=== PATIENT | female | born 1975 | race Two or more races ===

== ENCOUNTER 2019-10-24 10:09 | Emergency (ER) | payer BC ==
--- NOTE | 2019-10-24 10:42 | ED ---
Influenza-Like Illness - HPI Summary HPI Summary: 44-year-old female who presents emergency Department with flulike symptoms times x 5 days. Patient notes fever, cough, headache, sore throat. Patient notes cough has become more productive. Notes mild diarrhea without abdominal pain or vomiting. No past medical history. Patient's notes her daughter was positive for the flu last week. Symptoms are mild in severity. Fever is improved with Tylenol. - History of Current Complaint Chief Complaint: EDUpperRespComplaint Time Seen by Provider: 10/24/19 10:20 Hx Obtained From: Patient - Allergy/Home Medications Allergies/Adverse Reactions: Allergies Allergy/AdvReac Type Severity Reaction Status Date / Time acetaminophen [From Vicodin] Allergy Vomiting Verified 10/24/19 10:17 aspirin Allergy Swelling Verified 10/24/19 10:17 Of Face,Lips,& Throat hydrocodone [From Vicodin] Allergy Vomiting Verified 10/24/19 10:17 Home Medications: Home Medications Acetaminophen TAB* [Tylenol TAB*] 325 mg PO Q4H PRN 10/24/19 [History Confirmed 10/24/19] Ascorbic Acid TAB* [Vitamin C TAB*] 500 mg PO DAILY 10/24/19 [History Confirmed 10/24/19] Dextromethorphan Polistirex [Delsym] 30 mg PO DAILY PRN 10/24/19 [History Confirmed 10/24/19] PMH/Surg Hx/FS Hx/Imm Hx Previously Healthy: Yes Infectious Disease History: No Infectious Disease History: Denies: Traveled Outside the [place] in Last 30 Days - Family History Known Family History: Positive: Non-Contributory - Social History Occupation: Unemployed Lives: With Family Alcohol Use: None Substance Use Type: Reports: None Smoking Status (MU): Never Smoked Tobacco Review of Systems Positive: Fever, Chills Eyes: Negative Positive: Sore Throat, Nasal Discharge Cardiovascular: Negative Positive: Cough. Negative: Shortness Of Breath Positive: Diarrhea. Negative: Abdominal Pain, Vomiting Genitourinary: Negative Negative: dysuria Positive: Myalgia Skin: Negative Negative: Rash Positive: Headache. Negative: Weakness, Paresthesia, Numbness, Syncope All Other Systems Reviewed And Are Negative: Yes Physical Exam Triage Information Reviewed: Yes Vital Signs On Initial Exam: Initial Vitals Temp Pulse Resp BP Pulse Ox 98 F 80 18 125/81 98 10/24/19 10:10 10/24/19 10:10 10/24/19 10:10 10/24/19 10:10 10/24/19 10:10 Vital Signs Reviewed: Yes Appearance: Positive: Well-Appearing - Pt. sitting up in bed in NAD. Daughter present. Skin: Positive: Warm, Dry Head/Face: Positive: Normal Head/Face Inspection Eyes: Positive: Normal, EOMI, LAW, Conjunctiva Clear ENT: Positive: Pharynx normal, Nasal congestion, TMs normal Neck: Positive: Supple, Nontender. Negative: Nuchal Rigidity Cardiovascular: Positive: Normal, RRR Abdomen Description: Positive: Nontender, Soft Neurological: Positive: Normal, CN Intact II-III Psychiatric: Positive: Affect/Mood Appropriate Procedures - Sedation Patient Received Moderate/Deep Sedation with Procedure: No Diagnostics - Vital Signs Vital Signs Temp Pulse Resp BP Pulse Ox 10/24/19 10:10 98 F 80 18 125/81 98 - Laboratory Lab Results: Lab Results 10/24/19 Range/Units 10:30 Influenza A (Rapid) Pending Influenza B (Rapid) Pending Lab Statement: Any lab studies that have been ordered have been reviewed, and results considered in the medical decision making process. Flu Symptom Course/Dx - Course Course Of Treatment: Pt. with flu like sxs. Afebrile. Pt c/o productive cough and fever. Flu swab and CXR ordered. Influenza A positive. CXR negative for acute findings per radiology. Patient outside the window for Tamiflu treatment. Results discussed. Advised to continue supportive care. Increase fluids and rest. Tylenol or Motrin for fever and pain as directed. Follow-up with the [facility] for recheck and return to the ER symptoms change or worsen. Patient understands and agrees with plan. - Diagnoses Differential Diagnosis/HQI/PQRI: Positive: Influenza, Pneumonia, Upper Respiratory Infection Provider Diagnoses: Influenza A Discharge ED - Sign-Out/Discharge Documenting (check all that apply): Patient Departure - Discharge Plan Condition: Good Disposition: HOME Patient Education Materials: Influenza (ED) Referrals: [facility] [Outside] Additional Instructions: Schedule a follow up appointment with the [facility] for recheck in 2-3 days Increase fluids and rest Tylenol or motrin for pain as directed Return to ER if symptoms change or worsen - Billing Disposition and Condition Condition: GOOD Disposition: Home - Attestation Statements Provider Attestation: I was available for consultation for this patient. I did not evaluate the patient or participate in any medical decision making or disposition decisions unless I am specifically named in the chart as having consulted on the patient. If I have consulted on the patient, please see my own ED note on the patient encounter. Kanwal Zayas MD
[2019-10-24 10:46] LABS: Influenza A Molecular POSITIVE (Negative)
[2019-10-24 12:24] VITALS: BP 122/70
== END 2019-10-24 12:23 | disposition home or self-care (01) ==
LOC: ED 10:09
DX: J09.X2 Influenza due to identified novel influenza A virus with other respiratory manifestations (principal); Z88.5 Allergy status to narcotic agent; Z88.8 Allergy status to other drugs, medicaments and biological substances
CPT/HCPCS: 71046; 99282